=== PATIENT | female | born 1955 | race Caucasian/White ===

== ENCOUNTER 2022-01-24 06:13 | Emergency (ER) | payer SELFPAY ==
[2022-01-24] MEDS ORDERED: Furosemide 40 MG/4 ML VIAL IVPUSH ONE ×2 (07:06→12:26)
[2022-01-24] MEDS: Sodium Chloride 0.9% 10 ML Syringe FLUSH PRN ×2 (07:24→08:54)
[2022-01-24] MEDS ORDERED: Aspirin 81 MG Tab.Chew PO ONE (08:23)
[2022-01-24 08:25] LABS: ESTIMATED GFR 63 mL/min (>60)
[2022-01-24] MEDS ORDERED: Heparin Sodium 5,000 Units/ML Vial IVPUSH ONE ×2 (08:27→16:26)
[2022-01-24] MEDS ORDERED: Nitroglycerin/D5W 25 MG/250 ML BOTTLE IV SCH (08:30)
[2022-01-24] MEDS ORDERED: Heparin Sodium/D5W 25,000 UNITS/500 ML BAG IV SCH (08:30)
[2022-01-24] MEDS ORDERED: HYDROmorphone 0.5 MG/0.5 ML Syringe IVPUSH ONE (09:21)
[2022-01-24] MEDS ORDERED: Ondansetron 4 MG/2 ML SDV IVPUSH ONE (09:21)
[2022-01-24] MEDS ORDERED: LORazepam 2 MG/ML SDV IVPUSH ONE (13:19)
== END 2022-01-24 17:25 ==
LOC: JD.ED 06:13
DX: I21.4 Non-ST elevation (NSTEMI) myocardial infarction (principal); R77.8 Other specified abnormalities of plasma proteins; F17.210 Nicotine dependence, cigarettes, uncomplicated; Z79.899 Other long term (current) drug therapy
CPT/HCPCS: 36415; 71045; 80053; 82553; 83735; 83880; 84443; 84484; 85025; 85379; 85610; 85730; 86140; 93005; 96365; 96366; 96368; 96375; 96376; 99285; A9270; J1170; J1644; J1940; J2060; J2405; J3490; 93010

== ENCOUNTER 2022-03-25 08:34 | Emergency (ER) | payer BC ==
[2022-03-25] MEDS ORDERED: Albuterol/Ipratropium 3.0-0.5 MG/3 ML Neb Soln NEB ONE (10:38)
[2022-03-25] MEDS ORDERED: methylPREDNISolone Sodium Succinate 125 MG/2 ML SDV IVPUSH ONE (10:38)
[2022-03-25] MEDS ORDERED: Albuterol/Ipratropium 3.0-0.5 MG/3 ML Neb Soln ONE (11:01)
== END 2022-03-25 12:52 | disposition home or self-care (01) ==
LOC: JD.ED 08:34
DX: J44.1 Chronic obstructive pulmonary disease with (acute) exacerbation (principal); Z79.899 Other long term (current) drug therapy; Z79.82 Long term (current) use of aspirin
CPT/HCPCS: 36415; 71045; 80053; 83735; 84484; 85025; 85379; 93005; 96374; 99285; J2930; J7620-GY

== ENCOUNTER 2023-12-04 11:09 | Emergency (ER) | payer BC ==
[2023-12-04] MEDS: Ketorolac 30 MG/ML SDV IVPUSH ONE (11:38)
[2023-12-04] MEDS: Sodium Chloride 0.9% 10 ML Syringe FLUSH PRN (11:45)
[2023-12-04 12:15] LABS: APPEARANCE,URINE CLEAR (Clear); BILIRUBIN,URINE NEGATIVE (Negative); COLOR,URINE YELLOW (Yellow); GLUCOSE,URINE NEGATIVE (Negative); KETONES,URINE NEGATIVE (Negative); LEUKOCYTE ESTERASE,URINE NEGATIVE (Negative); NITRITE,URINE NEGATIVE (Negative); OCCULT BLOOD,URINE NEGATIVE (Negative); PH,URINE 5.5 (5.0-8.0); PROTEIN,URINE NEGATIVE (Negative); UROBILINOGEN,URINE 0.2 (0.2-1.0)
[2023-12-04 12:48] LABS: BASOPHILS PERCENT AUTO 0.4 % (0.0-1.0); EOSINOPHILS ABSOLUTE AUTO 0.2 K/mm3 (0.0-0.4); EOSINOPHILS PERCENT AUTO 1.8 % (0.0-6.0); HEMATOCRIT 40.2 % (37.0-47.0); IMMATURE GRAN ABSOLUTE AUTO 0.03 K/mm3 (0.00-0.05); IMMATURE GRAN PERCENT AUTO 0.3 % (0.0-0.4); LYMPHOCYTES ABSOLUTE AUTO 1.4 K/mm3 (1.0-4.8); LYMPHOCYTES PERCENT AUTO 15.9 % (24.0-44.0); MEAN CORPUSCULAR HEMOGLOBIN 29.7 pg (28.0-32.0); MEAN CORPUSCULAR HGB CONC 32.3 g/dl (32.0-36.0); MEAN CORPUSCULAR VOLUME 91.8 fl (83.0-99.0); MEAN PLATELET VOLUME 11.2 fl (9.4-12.3); MONOCYTES ABSOLUTE AUTO 0.5 K/mm3 (0.0-0.8); MONOCYTES PERCENT AUTO 6.1 % (0.0-8.0); NEUTROPHILS ABSOLUTE AUTO 6.7 K/mm3 (1.8-7.7); NEUTROPHILS PERCENT AUTO 75.5 % (41.0-71.0); PLATELET COUNT,PLT 148 K/mm3 (150-400); RED BLOOD CELL COUNT 4.38 M/mm3 (4.10-5.30); WHITE BLOOD CELL COUNT,WBC 8.91 K/mm3 (3.9-11.3)
[2023-12-04] MEDS ORDERED: Naloxone 0.4 MG/ML SDV IVPUSH PRN (13:03)
[2023-12-04 13:06] LABS: INR 0.99; PROTHROMBIN TIME 10.5 SECONDS (9.7-12.0)
[2023-12-04] MEDS: Sodium Chloride 0.9% 1,000 ML IV SCH (13:09)
[2023-12-04 13:11] LABS: A/G RATIO 1.1 (1-2); ALBUMIN 3.3 g/dl (3.4-5.0); ANION GAP 12.7 (5-15); BILIRUBIN TOTAL 0.4 mg/dL (0.2-1.0); BUN/CREATININE RATIO 18.2 (14-18); CALCIUM 8.6 mg/dL (8.5-10.1); CREATININE 1.1 mg/dL (0.55-1.02); EST CRCL DRUG DOSING (CG) 48.92 mL/min; POTASSIUM,K 3.7 mEq/L (3.5-5.1); PROTEIN TOTAL,TP 6.4 g/dl (6.4-8.2)
[2023-12-04] MEDS: Morphine 4 MG/ML Syringe IVPUSH ONE (13:22)
== END 2023-12-04 13:35 ==
LOC: JD.ED 11:09
DX: S72.141A Displaced intertrochanteric fracture of right femur, initial encounter for closed fracture (principal); J44.9 Chronic obstructive pulmonary disease, unspecified; F17.210 Nicotine dependence, cigarettes, uncomplicated; Z79.899 Other long term (current) drug therapy; Z79.82 Long term (current) use of aspirin; W13.3XXA Fall through floor, initial encounter
CPT/HCPCS: 36415; 73502; 80053; 81003; 85025; 85610; 96374; 96375; 99285; C1758; J1885; J2270; J3490; J7030